=== PATIENT | female | born 1960 | race Caucasian/White ===

== ENCOUNTER 2016-09-28 12:41 | Emergency (ER) | payer BC, OTHER ==
[2016-09-28 12:46] VITALS: BMI 33.4
--- NOTE | 2016-09-28 13:41 | PDOC ---
History of Present Illness - General Chief Complaint: Respiratory Stated Complaint: SOB Time Seen by Provider: 09/28/16 13:37 History Source: Patient Exam Limitations: No Limitations - History of Present Illness Initial Comments: 56 yo F history COPD presents with recent URI symptoms, now having persistent cough. She denies fever, chest pain, but notes that when she starts coughing, she has episodes of it and has difficulty getting it to stop. If she breathes too deeply, too quickly, or speaks too much, she will have a fit of coughing. Denies nasal drainage. Cough is dry. Past History - Past Medical History Allergies/Adverse Reactions: Allergies Allergy/AdvReac Type Severity Reaction Status Date / Time codeine Allergy Vomiting Verified 09/28/16 12:46 Asthma: Yes - Psycho/Social/Smoking Cessation Hx Anxiety: No Suicidal Ideation: No Smoking History: Never smoked Hx Alcohol Use: Yes (SOCIAL) Drug/Substance Use Hx: No Substance Use Type: None Review of Systems - Review of Systems Able to Perform ROS?: Yes Comments:: GENERAL/CONSTITUTIONAL: No fever or chills. No weakness. HEAD, EYES, EARS, NOSE AND THROAT: No change in vision. No ear pain or discharge. No sore throat. CARDIOVASCULAR: No chest pain or shortness of breath. RESPIRATORY: No wheezing or hemoptysis. +Cough. GASTROINTESTINAL: No nausea, vomiting, diarrhea or constipation. GENITOURINARY: No dysuria, frequency, or change in urination. MUSCULOSKELETAL: No joint or muscle swelling or pain. No neck or back pain. SKIN: No rash NEUROLOGIC: No headache, vertigo, loss of consciousness, or change in strength/ sensation. ENDOCRINE: No increased thirst. No abnormal weight change. HEMATOLOGIC/LYMPHATIC: No anemia, easy bleeding, or history of blood clots. ALLERGIC/IMMUNOLOGIC: No hives or skin allergy. *Physical Exam - Vital Signs Last Vital Signs Temp Pulse Resp BP Pulse Ox 98.0 F 74 20 101/46 99 09/28/16 12:43 09/28/16 12:43 09/28/16 12:43 09/28/16 12:43 09/28/16 13:11 - Physical Exam Comments: GENERAL: Awake, alert, and fully oriented, in no acute distress HEAD: No signs of trauma EYES: PERRLA, EOMI, sclera anicteric, conjunctiva clear ENT: Auricles normal inspection, hearing grossly normal, nares patent, oropharynx clear without exudates. Moist mucosa NECK: Normal ROM, supple, no lymphadenopathy, JVD, or masses LUNGS: Breath sounds equal, clear to auscultation bilaterally. No wheezes, and no crackles. Intermittent episodes of dry cough. HEART: Regular rate and rhythm, normal S1 and S2, no murmurs, rubs or gallops ABDOMEN: Soft, nontender, normoactive bowel sounds. No guarding, no rebound. No masses EXTREMITIES: Normal range of motion, no edema. No clubbing or cyanosis. No cords, erythema, or tenderness NEUROLOGICAL: Cranial nerves II through XII grossly intact. Normal speech, normal gait SKIN: Warm, Dry, normal turgor, no rashes or lesions noted. Medical Decision Making - Medical Decision Making 09/28/16 14:50 Patient reassessed. She reports some improvement in symptoms. Still having some cough, but not as bad. Will cont to monitor. *DC/Admit/Observation/Transfer Diagnosis at time of Disposition: Cough - Discharge Dispostion Disposition: HOME Condition at time of disposition: Stable Admit: No - Referrals Referrals: Renay Hunt MD [Primary Care Provider] - - Patient Instructions Printed Discharge Instructions: DI for Cough -- Adult, DI for Viral Upper Respiratory Infection -- Adult
[2016-09-28] MEDS ORDERED: SODIUM CHLORIDE 1,000 ML IV STA (13:51)
[2016-09-28] MEDS: ALBUTEROL SO4 2.5/IPRATROPIUM 0.5 INH SOL 3 ML VIAL.NEB. NEB SCH (14:00)
[2016-09-28] MEDS ORDERED: ALBUTEROL SO4 2.5/IPRATROPIUM 0.5 INH SOL 3 ML VIAL.NEB. NEB ONE (14:02)
[2016-09-28 15:53] VITALS: BP 124/80; PULSE 87; TEMP 98.5
== END 2016-09-28 15:52 | disposition home or self-care (01) ==
LOC: JER 12:41
PROC: 3E0F7GC Introduction of Other Therapeutic Substance into Respiratory Tract, Via Natural or Artificial Opening (ICD-10-PCS; principal; 2016-09-28)
PROC: 3E0337Z Introduction of Electrolytic and Water Balance Substance into Peripheral Vein, Percutaneous Approach (ICD-10-PCS; 2016-09-28)
DX: J06.9 Acute upper respiratory infection, unspecified (principal); B97.89 Other viral agents as the cause of diseases classified elsewhere
CPT/HCPCS: 71020-TC; 99283-25